=== PATIENT | male | born 1995 | race African-American/Black ===

== ENCOUNTER 2022-10-12 10:38 | Emergency (ER) | payer OTHER | END 2022-10-12 11:21 | disposition home or self-care (01) | LOC: DL.ED 10:38 | DX: S01.81XA Laceration without foreign body of other part of head, initial encounter (principal); S01.21XA Laceration without foreign body of nose, initial encounter; F17.210 Nicotine dependence, cigarettes, uncomplicated; W22.8XXA Striking against or struck by other objects, initial encounter; Y92.89 Other specified places as the place of occurrence of the external cause; Y99.0 Civilian activity done for income or pay | CPT/HCPCS: 12011; 99282; 99283 ==